=== PATIENT | male | born 2000 | race Two or more races ===

== ENCOUNTER 2020-12-28 22:08 | Emergency (ER) | payer SELFPAY ==
[~2020-12-28] VITALS: Ht 172.7 cm; Wt 75.3 kg
--- NOTE | 2020-12-28 23:02 | NUR ---
PATIENT CAME TO THE ER BED 12 [id number] FROM THE STREETS FOUND ON TOP OF A JEEP. PATIENT HAD A BOTTLE OF WINE THAT IS 3/4 FULL. PATIENT IS ALERT AND ORIENTED x4. DENIES SHORTNESS OF BREATH. BREATHING EVENLY AND UNLABORED ON ROOM AIR. CONNECTED TO THE MONITOR.
--- NOTE | 2020-12-29 02:31 | NUR ---
Patient discharged to home in stable condition. Written and verbal after care instructions given. Patient verbalizes understanding of instruction.
--- NOTE | 2020-12-29 02:31 | NUR ---
PATIENT IS AMBULATORY WITH A STEADY GAIT. ALERT AND ORIENTED x4. DENIES SHORTNESS OF BREATH. PATIENT WILL CALL AN UBER.
[2020-12-29 02:34] VITALS: BP 124/76
== END 2020-12-29 02:34 | disposition home or self-care (01) ==
LOC: ER 22:10 → EDBD 22:10 → ER 12-29 02:34
DX: F10.129 Alcohol abuse with intoxication, unspecified (principal); Y90.9 Presence of alcohol in blood, level not specified